=== PATIENT | female | born 1985 | race Caucasian/White ===

== ENCOUNTER 2019-05-23 22:17 | Inpatient (IN) ==
[2019-05-23] MEDS ORDERED: MEPERIDINE 50 MG/1 ML VIAL IV PRN (22:37)
[2019-05-23] MEDS ORDERED: ONDANSETRON 4 MG/2 ML VIAL IV PRN (22:37)
[2019-05-23] MEDS ORDERED: BUTORPHANOL 2 MG/ML VIAL IV PRN (22:37)
[2019-05-23] MEDS ORDERED: LACTATED RINGERS 500 ML IV PRN (22:37)
[2019-05-23] MEDS: LACTATED RINGERS 1,000 ML IV SCH (22:54)
[2019-05-23 23:17] LABS: Basophils % 0.4 % (0.0-0.8); Eosinophils # 0.1 10*3/uL (0.0-0.87); Eosinophils % 0.5 % (0.00-10.9); Hematocrit 32.4 VOL% (35.7-47.0); Hemoglobin 10.3 GM/DL (12.0-16.0); Immature Granulocytes % 0.5 %; Immature Granulocytes Absolute 0.05 #; Lymphocytes # 3.2 10*3/uL (1.4-4.0); Lymphocytes % 31.9 % (21.3-54.2); Mean Corpuscular HGB Conc 31.8 GM/DL (32-36); Mean Corpuscular Volume 87.8 FL (87-102); Monocytes % 4.4 % (1.7-12.7); Neutrophils % 62.3 % (38.7-73.9); Platelet Count 316 T/CUMM (130-400); Red Blood Count 3.69 MC/CUMM (3.8-5.5); Red Cell Distribution Width 12.9 % (9.3-17.3); White Blood Count 9.9 T/CUMM (4-12)
[2019-05-23 23:40] LABS: Alanine Aminotransferase 17 U/L (13-56); Alkaline Phosphatase 150 U/L (45-117); Aspartate Amino Transferase 17 U/L (0-37); Bilirubin,Total < 0.39 MG/DL (0.2-1.0); Blood Urea Nitrogen 3 MG/DL (7-18); Calcium 8.5 MG/DL (8.5-10.1); Glucose 114 MG/DL (74-106); Osmolality,Calculated 274.5 MOS/KG (273-304); Total Protein 7.2 G/DL (6.4-8.3)
[2019-05-24] MEDS ORDERED: OXYTOCIN/LR 20 UNIT/1,000 ML BAG IV SCH (04:00)
[2019-05-24] MEDS: LACTATED RINGERS 1,000 ML IV SCH (04:09)
[2019-05-24] MEDS ORDERED: AMPICILLIN INJ 2,000 MG in SODIUM CHLORIDE 0.9% 100 ML IV ONE (04:11)
[2019-05-24] MEDS ORDERED: SODIUM CHLORIDE 0.9% 100 ML IV ONE (04:13)
[2019-05-24] MEDS ORDERED: AMPICILLIN 2,000 MG VIAL ONE (04:13)
[2019-05-24] MEDS ORDERED: FAMOTIDINE 20 MG/2 ML VIAL IV ONE (06:04)
[2019-05-24] MEDS ORDERED: CITRIC ACID/SODIUM CITRATE 30 ML UDCUP PO ONE (06:04)
[2019-05-24] MEDS ORDERED: ePHEDrine 50 MG/ML AMP IV PRN (06:04)
[2019-05-24] MEDS ORDERED: NALOXONE 0.4 MG/ML VIAL IV PRN (06:04)
[2019-05-24] MEDS ORDERED: PROMETHAZINE 25 MG/1 ML VIAL IM ONE (06:04)
[2019-05-24] MEDS ORDERED: hydrOXYzine HCL 25 MG/1 ML VIAL IM PRN (06:04)
[2019-05-24] MEDS ORDERED: diphenhydrAMINE 50 MG/1 ML VIAL IV PRN (06:04)
[2019-05-24] MEDS ORDERED: fentaNYL 2 MCG/ROPIV 0.2% EPID 100 ML EPIDURAL SCH (06:30)
[2019-05-24] MEDS ORDERED: LIDOCAINE 1% 50 ML VIAL ONE (08:52)
[2019-05-24] MEDS ORDERED: METHYLERGONOVINE 0.2 MG/1 ML AMP ONE (08:53)
[2019-05-24] MEDS ORDERED: miSOPROStol 200 MCG TABLET ONE (08:53)
[2019-05-24] MEDS ORDERED: HYDROCORTISONE 2.5% RECTAL CREAM 30 GM TUBE TOP PRN (09:15)
[2019-05-24] MEDS ORDERED: OXYTOCIN/LR 20 UNIT/1,000 ML BAG IV ONE (09:15)
[2019-05-24] MEDS ORDERED: DIPH/TET/ACEL PERT BOOSTER VACCINE 0.5 ML VIAL IM ONE (09:15)
[2019-05-24] MEDS ORDERED: BENZOCAINE 20%/MENTHOL 0.5% SPRAY 56 GM CAN TOP PRN (09:15)
[2019-05-24] MEDS ORDERED: ACETAMINOPHEN 325 MG TABLET PO PRN (09:15)
[2019-05-24] MEDS ORDERED: oxyCODONE/ACETAMINOPHEN 5-325 MG TABLET PO PRN ×2 (09:15)
[2019-05-24] MEDS ORDERED: ONDANSETRON 4 MG/2 ML VIAL IV PRN (09:15)
[2019-05-24] MEDS ORDERED: BISACODYL 10 MG SUPP RECTAL PRN (09:15)
[2019-05-24] MEDS ORDERED: WITCH HAZEL PADS 100/JAR TOP PRN (09:15)
[2019-05-24] MEDS ORDERED: RHO(D) IMMUNE GLOBULIN 300 MCG SYRINGE IM ONE (09:15)
[2019-05-24] MEDS ORDERED: LANOLIN 50% CREAM 0.3 OZ TUBE TOP PRN (09:15)
[2019-05-24] MEDS ORDERED: MEASLES/MUMPS/RUBELLA VACCINE 0.5 ML VIAL SUBCUT ONE (09:15)
[2019-05-24] MEDS: IBUPROFEN 800 MG TABLET PO PRN (15:45)
[2019-05-24] MEDS: DOCUSATE SODIUM 100 MG CAPSULE PO SCH (21:02)
[2019-05-25] MEDS: IBUPROFEN 800 MG TABLET PO PRN (02:10)
[2019-05-25 06:10] LABS: Basophils % 0.4 % (0.0-0.8); Eosinophils # 0.1 10*3/uL (0.0-0.87); Eosinophils % 1.1 % (0.00-10.9); Hematocrit 31.2 VOL% (35.7-47.0); Hemoglobin 9.7 GM/DL (12.0-16.0); Immature Granulocytes % 0.5 %; Immature Granulocytes Absolute 0.05 #; Lymphocytes # 3.2 10*3/uL (1.4-4.0); Lymphocytes % 29.7 % (21.3-54.2); Mean Corpuscular HGB Conc 31.1 GM/DL (32-36); Mean Corpuscular Volume 89.1 FL (87-102); Mean Platelet Volume 9.9 FL (9.6-12.0); Monocytes % 6.3 % (1.7-12.7); Platelet Count 266 T/CUMM (130-400); Red Cell Distribution Width 13.1 % (9.3-17.3); White Blood Count 10.7 T/CUMM (4-12)
[2019-05-25 07:35] VITALS: BP 94/52
[2019-05-25] MEDS: DOCUSATE SODIUM 100 MG CAPSULE PO SCH (08:37)
== END 2019-05-25 12:55 | disposition home or self-care (01) | DRG 807 ==
LOC: N.LDOUT 22:17 → N.LD 22:21 → N.OB 05-24 13:19
PROVIDERS: ADMIT Specialist; ATTEND Specialist